=== PATIENT | female | born 1985 | race Caucasian/White ===

== ENCOUNTER 2016-08-05 19:41 | Emergency (ER) | payer BC ==
[2016-08-05] MEDS ORDERED: IBUPROFEN 600 MG TAB PO ONE (20:01)
--- NOTE | 2016-08-05 20:02 | EDPHY ---
H & P Time Seen by Provider: 08/05/16 19:51 HPI/ROS: CHIEF COMPLAINT: left middle finger pain HISTORY OF PRESENT ILLNESS: 30-year-old female presents to the emergency department complaining of left middle finger pain after getting it smashed between a large rock and a tree. Pt is right hand dominant. She denies numbness or tingling to this finger, reports pain with movement of this finger. Tetanus is up-to-date, she denies other complaints. Smoking Status: Never smoked Physical Exam: GEN: Awake, alert, oriented, no acute distress RESP: nl resp effort MSK: Left middle finger superficial abrasions to lateral aspect finger, tenderness to palpation to middle and proximal phalanx and PIP joint. 2 point discrimination intact, cap refill less than 2 seconds SKIN: Superficial abrasion to lateral aspect of middle finger and ring finger Constitutional: Initial Vital Signs Temperature (C) 36.4 C 08/05/16 19:44 Heart Rate 98 08/05/16 19:44 Respiratory Rate 16 08/05/16 19:44 Blood Pressure 123/83 H 08/05/16 19:44 O2 Sat (%) 95 08/05/16 19:44 O2 Delivery Mode Room Air Allergies/Adverse Reactions: cat dander Allergy (Verified 08/05/16 19:48) Home Medications: Medication Instructions Recorded NK [No Known Home Meds] 08/05/16 MDM/Departure - MDM Diagnostics: Left middle finger x-ray independently reviewed by me- No fracture Medications Given: Discontinued Medications Ibuprofen (Motrin) 400 mg PO EDNOW ONE Stop: 08/05/16 20:02 Last Admin: 08/05/16 20:10 Dose: 400 mg - Depart Disposition: Home, Routine, Self-Care Clinical Impression: Contusion of left middle finger Qualifiers: Encounter type: initial encounter Damage to nail status: without damage Qualified Code(s): S60.032A - Contusion of left middle finger without damage to nail, initial encounter Condition: Good Instructions: Contusion in Adults (ED) Additional Instructions: Rest, ice, elevate, take 400 mg of ibuprofen every 6 hours with food for 3-5 days, follow up with the hand doctor for symptoms that are not improving in the next 3-5 days. Keep your finger samina-taped to the finger next to it for comfort. Return to the emergency department for any pain that is not controlled , numbness or tingling to this finger, discoloration of this finger, any other questions or concerns. Referrals: Asa Armendariz MD [Medical Doctor] - As per Instructions (hand doctor hearing aid consultant)
[2016-08-05] MEDS ORDERED: IBUPROFEN 200 MG TAB PO ONE (20:03)
[2016-08-05 20:40] VITALS: BP 128/86; PULSE 72; RESP 20; TEMP 98.6; O2SAT 97
== END 2016-08-05 20:45 | disposition home or self-care (01) ==
DX: S60.032A Contusion of left middle finger without damage to nail, initial encounter (principal); W23.0XXA Caught, crushed, jammed, or pinched between moving objects, initial encounter

== ENCOUNTER 2016-11-27 09:39 | Emergency (ER) | payer BC ==
[2016-11-27 09:44] VITALS: BP 122/86; PULSE 88; RESP 16; TEMP 97.7; O2SAT 98
--- NOTE | 2016-11-27 10:28 | EDPHY ---
H & P Stated Complaint: plastic toy softball to L mosque -lac- no loc HPI/ROS: Chief complaint: Left forehead laceration History of present illness: 31-year-old female presents to the emergency department for a left forehead laceration. Patient was playing with a plastic softball when it struck the left side of her forehead. She sustained a cut at that time. Minimal discomfort. Bleeding has been controlled with a dressing. She was not knocked down. She did not lose consciousness. No report of headache. No neck pain. No neurologic symptoms such as paresthesias, weakness or paralysis or bowel or bladder dysfunction. No visual disturbances. No changes in hearing. Her tetanus is up-to-date. - Personal History LMP (Females 10-55): 8-14 Days Ago Current Tetanus/Diphtheria Vaccine: Unsure Current Tetanus Diphtheria and Acellular Pertussis (TDAP): Unsure - Medical/Surgical History Hx Asthma: No Hx Chronic Respiratory Disease: No Hx Diabetes: No Hx Cardiac Disease: No Hx Renal Disease: No Hx Cirrhosis: No Hx Alcoholism: No Hx HIV/AIDS: No Hx Splenectomy or Spleen Trauma: No Other PMH: hx kidney infections - Social History Smoking Status: Never smoked - Physical Exam Exam: General: Alert, nontoxic Eyes: PERRLA. EOM intact without discomfort or changes in vision reported. ENT: No hemotympanum, no urbina sign, no raccoon eyes. Skin: 1 cm laceration to the left forehead just anterior to the mosque. No deep structure involvement. No foreign body contamination. Musculoskeletal: The face, head and cervical spine are nontender to palpation without crepitus or bony deformity. Neurological: Alert and oriented x4. Cranial nerves 2-12 grossly intact. Strength and sensation intact and symmetrical. No meningismus. Ambulating without difficulty. Constitutional: Initial Vital Signs Temperature (C) 36.5 C 11/27/16 09:41 Heart Rate 88 11/27/16 09:41 Respiratory Rate 16 11/27/16 09:41 Blood Pressure 122/86 H 11/27/16 09:41 O2 Sat (%) 98 11/27/16 09:41 O2 Delivery Mode Room Air Allergies/Adverse Reactions: cat dander Allergy (Verified 08/05/16 19:48) Home Medications: Medication Instructions Recorded NK [No Known Home Meds] 08/05/16 Medical Decision Making Procedures: Procedure: Laceration repair. Verbal consent was obtained from the patient. The 1 cm laceration on the left forehead, anterior to the mosque was anesthetized in the usual fashion. The wound was irrigated, draped and explored to its base with a gloved finger. There were no deep structures involved. No tendon injury was identified. The wound was repaired with 6 0 Prolene, 4 simple interrupted sutures. The wound repair was simple. The procedure was performed by myself. ED Course/Re-evaluation: Patient seen under the supervision of my secondary supervising physician Dr. Angel Lopez. Patient presents to the emergency department after sustaining a cut to her left forehead region from a plastic softball. By history and physical exam this appears to be minimal trauma. I do not believe imaging studies are warranted at this time. The wound has been cleaned, repaired and dressed. Her tetanus is already up-to-date. Patient is discharged home. She is asked to follow up with her primary care doctor for recheck. Strict return precautions are given. Patient voiced understanding and agreement with plan. Differential Diagnosis: Included but not limited to superficial laceration, deep structure injury, foreign body contamination, unlikely bony fracture or central nervous system injury Departure - Departure Disposition: Home, Routine, Self-Care Clinical Impression: Facial laceration Condition: Good Instructions: Care For Your Stitches (ED), Head Injury (ED), Facial Laceration (ED), Acute Wounds (ED) Additional Instructions: Follow up with a primary care doctor next week for recheck Stitches to be removed in 7 days If symptoms worsen or new symptoms develop return to the emergency room for recheck Referrals: NONE *PRIMARY CARE P,. [Primary Care Provider] - As per Instructions
== END 2016-11-27 10:35 | disposition home or self-care (01) ==
PROC: 0HQ1XZZ Repair Face Skin, External Approach (ICD-10-PCS; principal; 2016-11-27)
DX: S01.81XA Laceration without foreign body of other part of head, initial encounter (principal); W21.07XA Struck by softball, initial encounter; Y99.8 Other external cause status; Y93.64 Activity, baseball